=== PATIENT | male | born 1965 | race Caucasian/White ===

== ENCOUNTER 2020-11-23 08:14 | Outpatient (CLI) | payer BC, SELFPAY ==
[2020-11-23 08:38] VITALS: BMI 29.2
--- NOTE | 2020-11-23 08:40 | ECG_ITS ---
[facility] Test Date: 2020-11-23 Pat Name: Inocente Wolff Department: Room: Gender: Male [employer]: : [id number] Requested By: Juanjose Geiger Order Number: [id number] Pennington MD: Kylah Victor M.D. Interpretive Statements NAME OF STUDY: TREADMILL STRESS TEST INDICATION: Hypertension; [employer] Physical Clearance Baseline blood pressure of 155/103 mm Hg, heart rate of 79 beats per minute and oxygen saturation of 96%. EKG showed normal sinus rhythm, normal axis with nonspecific ST-T wave changes in inferior leads. The patient exercised for 8 minutes 52 seconds on a standard Nadir protocol. Patient attained a maximum heart rate of 156 beats per minute(93% of the maximum predicted heart rate) with a blood pressure at the peak exercise of 214/107 mm Hg and oxygen saturation 95%. The EKG at the peak exercise revealed sinus tachycardia with half to [address] segment depression in inferolateral lateral leads not meeting diagnostic criteria for ischemia. Patient did not have any chest pain or any significant arrhythmis with the exercise During the recovery phase, there were no new changes. Blood pressure at the end of the recovery phase was 183/95 mm Hg with a heart rate of 108 beats per minute and oxygen saturation 95%. CONCLUSION: 1. Normal EKG response to treadmill exercise. 2. No exercise-induced chest pain or cardiac arrhythmia. 3. Excellent exercise tolerance, attained a maximum of 10.2 METs. Maximum VO2 of 35.7 mL/kg/min. 4. Baseline hypertension with hypertensive response to exercise. Electronically Signed On 11-24-2020 11:23:05 CDT by Kylah Victor M.D. [id number]
[2020-11-23 09:45] VITALS: BP 183/78; PULSE 105
== END 2020-11-23 08:15 | disposition home or self-care (01) ==
LOC: CDL 08:21
PROVIDERS: Visit Provider Family Medicine
DX: I10 Essential (primary) hypertension (principal)
CPT/HCPCS: 93017